=== PATIENT | male | born 1975 | race Caucasian/White ===

== ENCOUNTER 2022-01-01 12:02 | Emergency (ER) | payer BC, OTHER ==
[2022-01-01 14:53] LABS: Protime INR 1.03
[2022-01-01 14:54] LABS: Absolute Lymphocytes (CBC) 1.3 K/uL (0.7-4.9); Lymphocytes % 21.9 % (15.3-44.8); MPV 8.8 fL (7.6-11.3)
[2022-01-01 15:04] LABS: Albumin 4.4 g/dL (3.4-5.0); Bilirubin Direct 0.1 mg/dL (0-0.2); Bilirubin Total 0.6 mg/dL (0.2-1.0); Magnesium 2.5 mg/dL (1.8-2.4); Potassium 4.2 mmol/L (3.5-5.1); Protein, Total 7.6 g/dL (6.4-8.2); Troponin High Sensitivity 4.3 pg/mL (<58.9)
--- NOTE | 2022-01-01 15:13 | RAD REPORT ---
EXAM DESCRIPTION: Man Single View01/01/2022 3:02 pm CLINICAL HISTORY: Chest pain COMPARISON: 2015 FINDINGS: The lungs appear clear of acute infiltrate. The heart is normal size IMPRESSION: No acute abnormalities displayed
--- NOTE | 2022-01-01 15:37 | ER ---
Nurse's Notes [facility] Name: Leo Horn Age: 46 yrs Sex: Male : 1975 Arrival Date: 01/01/2022 Time: 12:02 Bed Waiting Private MD: Diagnosis: Chest pain, unspecified Presentation: 01/01 13:30 Chief complaint: Patient states: Intermittent left sided CP, radiates to left arm x 5 jl7 days. Coronavirus screen: At this time, the client does not indicate any symptoms associated with coronavirus-19. Ebola Screen: No symptoms or risks identified at this time. 13:30 Method Of Arrival: Ambulatory jl7 13:30 Initial Sepsis Screen: Does the patient meet any 2 criteria? No. Patient's initial jl7 sepsis screen is negative. Does the patient have a suspected source of infection? No. Patient's initial sepsis screen is negative. Risk Assessment: Do you want to hurt yourself or someone else? Patient reports no desire to harm self or others. Onset of symptoms is unknown. 13:30 Acuity: LEELEE 3 jl7 Triage Assessment: 13:30 General: Appears in no apparent distress. uncomfortable, Behavior is calm, cooperative, jl7 appropriate for age. Pain: Complains of pain in anterior aspect of left upper chest Pain currently is 2 out of 10 on a pain scale. Neuro: Level of Consciousness is awake, alert, obeys commands, Oriented to person, place, time, situation. Cardiovascular: Patient's skin is warm and dry. Respiratory: Airway is patent Respiratory effort is even, unlabored, Respiratory pattern is regular, symmetrical. Derm: Skin is pink, warm \T\ dry. Historical: - Allergies: 16:12 No Known Allergies; jl7 - PMHx: 16:12 high cholesterol; jl7 - Immunization history:: Client reports receiving the Stefan \T\ Stefan single-dose vaccine. - Social history:: Smoking status: Patient denies any tobacco usage or history of. Screenin:30 Abuse screen: Denies threats or abuse. Denies injuries from another. Nutritional jl7 screening: No deficits noted. Tuberculosis screening: No symptoms or risk factors identified. Fall Risk IV access (20 points). Total Cabrera Fall Scale indicates No Risk (0-24 pts). Vital Signs: 13:30 BP 115 / 75; Pulse 70; Resp 17; Temp 97.6; Pulse Ox 100% ; Weight 90.72 kg; Height 5 jl7 ft. 11 in. (180.34 cm); Pain 2/10; 13:30 Body Mass Index 27.89 (90.72 kg, 180.34 cm) jl7 ED Course: 12:02 Patient arrived in ED. as 13:00 Luke Nguyen NP is PHCP. pm1 13:00 Aman Gunter MD is Attending Physician. pm1 13:30 Arm band placed on right wrist. jl7 14:19 Triage completed. jl7 14:38 Inserted saline lock: 20 gauge in left antecubital area, using aseptic technique. zm 14:38 Patient has correct armband on for positive identification. zm 15:04 XRAY Chest (1 view) In Process Unspecified. EDMS 15:30 No provider procedures requiring assistance completed. IV discontinued, intact, jl7 bleeding controlled, No redness/swelling at site. Pressure dressing applied. Patient maintains SpO2 saturation greater than 95% on room air. Administered Medications: No medications were administered Outcome: 15:36 Discharge ordered by . pm1 16:15 Discharged to home ambulatory. jl7 16:15 Condition: stable 16:15 Discharge instructions given to patient, Instructed on discharge instructions, follow up and referral plans. Demonstrated understanding of instructions, follow-up care. 16:16 Patient left the ED. jl7 Signatures: Dispatcher [employer] Kim Ornelas as Luke Nguyen NP PILOT MANAGER pm1 Yoshi Robb RN RN jl7 Yudy Mariscal
--- NOTE | 2022-01-01 15:37 | EDPHYS ---
Physician Documentation [facility] Name: Leo Horn Age: 46 yrs Sex: Male : 1975 Arrival Date: 01/01/2022 Time: 12:02 Bed Waiting Private MD: JADON Physician Aman Gunter HPI: 01/01 13:21 This 46 yrs old Male presents to ER via Ambulatory with complaints of Chest Pain. pm1 13:21 The patient or guardian reports chest pain that is located primarily in the anterior pm1 aspect of right upper chest, anterior aspect of left upper chest and mid-sternal area. Onset: 5 day(s) ago. The pain radiates to the left arm. Associated signs and symptoms: The patient has no apparent associated signs or symptoms, Pertinent negatives: abdominal pain, diaphoresis, dizziness, headache, nausea, shortness of breath, vomiting. The chest pain is described as aching. Duration: The patient or guardian reports multiple episodes, that have now resolved, that are intermittent. Modifying factors: The symptoms are alleviated by nothing. the symptoms are aggravated by nothing. Severity of pain: in the emergency department the pain has resolved. 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 Historical: - Allergies: 16:12 No Known Allergies; jl7 - PMHx: 16:12 high cholesterol; jl7 - Immunization history:: Client reports receiving the Stefan \T\ Stefan single-dose vaccine. - Social history:: Smoking status: Patient denies any tobacco usage or history of. ROS: 13:21 Constitutional: Negative for fever, chills, and weight loss. pm1 13:21 Respiratory: Negative for shortness of breath, cough, wheezing, and pleuritic chest pain, Abdomen/GI: Negative for abdominal pain, nausea, vomiting, diarrhea, and constipation, Back: Negative for injury and pain, MS/Extremity: Negative for injury and deformity, Skin: Negative for injury, rash, and discoloration, Neuro: Negative for headache, weakness, numbness, tingling, and seizure. 13:21 Cardiovascular: Positive for chest pain, palpitations, Negative for edema. 13:21 All other systems are negative. Exam: 13:21 Constitutional: This is a well developed, well nourished patient who is awake, alert, pm1 and in no acute distress. Head/Face: Normocephalic, atraumatic. 13:21 Back: No spinal tenderness. No costovertebral tenderness. Full range of motion. Skin: Warm, dry with normal turgor. Normal color with no rashes, no lesions, and no evidence of cellulitis. MS/ Extremity: Pulses equal, no cyanosis. Neurovascular intact. Full, normal range of motion. 13:21 Eyes: Exam is negative for acute changes, Extraocular movements: no acute changes, Conjunctiva: no acute changes, no injection. 13:21 ENT: Exam is negative for acute changes, Mouth: no acute changes, Lips: normal, moist, Oral mucosa: normal, pink and intact, moist. 13:21 Cardiovascular: Rate: normal, Rhythm: regular, Pulses: no pulse deficits are appreciated, Heart sounds: normal, normal S1and S2, Edema: is not appreciated. 13:21 Respiratory: Exam negative for acute changes, respiratory distress, shortness of breath, Breath sounds: are clear throughout. 13:21 Abdomen/GI: Inspection: abdomen appears normal, Bowel sounds: normal, Palpation: abdomen is soft and non-tender. 13:21 Neuro: Exam negative for acute changes, Orientation: is normal, Mentation: is normal, Motor: is normal, moves all fours. Vital Signs: 13:30 BP 115 / 75; Pulse 70; Resp 17; Temp 97.6; Pulse Ox 100% ; Weight 90.72 kg; Height 5 jl7 ft. 11 in. (180.34 cm); Pain 2/10; 13:30 Body Mass Index 27.89 (90.72 kg, 180.34 cm) jl7 MDM: 13:21 Patient medically screened. pm1 15:34 Data reviewed: vital signs. Data interpreted: Pulse oximetry: on room air is 100 %. pm1 Interpretation: normal. Counseling: I had a detailed discussion with the patient and/or guardian regarding: the historical points, exam findings, and any diagnostic results supporting the discharge/admit diagnosis, lab results, radiology results, the need for outpatient follow up, a family practitioner, to return to the emergency department if symptoms worsen or persist or if there are any questions or concerns that arise at home. 01/01 13:20 Order name: Basic Metabolic Panel; Complete Time: 15:17 pm1 01/01 13:20 Order name: CBC with Diff; Complete Time: 15:17 pm1 01/01 13:20 Order name: LFT's; Complete Time: 15:17 pm1 01/01 13:20 Order name: Magnesium; Complete Time: 15:17 pm1 01/01 13:20 Order name: NT PRO-BNP; Complete Time: 15:17 pm1 01/01 13:20 Order name: PT-INR; Complete Time: 14:53 pm1 01/01 13:20 Order name: Troponin HS; Complete Time: 15:17 pm1 01/01 13:20 Order name: XRAY Chest (1 view); Complete Time: 15:17 pm1 01/01 13:20 Order name: EKG; Complete Time: 13:20 pm1 01/01 13:20 Order name: Cardiac monitoring; Complete Time: 16:11 pm1 01/01 13:20 Order name: EKG - Nurse/Tech; Complete Time: 16:11 pm1 01/01 13:20 Order name: IV Saline Lock; Complete Time: 14:42 pm1 01/01 13:20 Order name: Labs collected and sent; Complete Time: 14:42 pm1 01/01 13:20 Order name: O2 Per Protocol; Complete Time: 14:42 pm1 01/01 13:20 Order name: O2 Sat Monitoring; Complete Time: 14:43 pm1 Administered Medications: No medications were administered Disposition Summary: 01/01/22 15:36 Discharge Ordered Location: Home pm1 Problem: new pm1 Symptoms: have improved pm1 Condition: Stable pm1 Diagnosis - Chest pain, unspecified pm1 Followup: pm1 - With: Emergency Department - When: As needed - Reason: Worsening of condition Followup: pm1 - With: Private Physician - When: 2 - 3 days - Reason: Recheck today's complaints, Continuance of care, Re-evaluation by your physician Discharge Instructions: - Discharge Summary Sheet pm1 - Nonspecific Chest Pain, Adult pm1 Forms: - Medication Reconciliation Form pm1 - Thank You Letter pm1 - Antibiotic Education pm1 - Prescription Opioid Use pm1 Addendum: 01/06/2022 07:43 Co-signature as Attending Physician, Aman Gunter MD I agree with the assessment and c echevarria plan of care. Signatures: Dispatcher [employer] Aman Isaac MD MD cha Marinas, Patrick, CATH LAB TECH CATH LAB TECH pm1 Robb, Jahala, RN RN jl7
[2022-01-01 18:40] VITALS: BP 115/75; TEMP 97.6; O2SAT 100
== END 2022-01-01 16:16 | disposition home or self-care (01) ==
LOC: ER 12:02
DX: R07.9 Chest pain, unspecified (principal); R00.2 Palpitations; E78.00 Pure hypercholesterolemia, unspecified
CPT/HCPCS: 36415; 71045; 80048; 80076; 83735; 83880; 84484; 85025; 85610; 93005; 99284